=== PATIENT | female | born 1935 | race Caucasian/White ===

== ENCOUNTER 2024-09-06 21:59 | Inpatient (IN) | payer MEDICARE, SELFPAY ==
[2024-09-06 22:01] VITALS: BP 147/76; PULSE 76; RESP 27; TEMP 37.3; O2SAT 86; BMI 16.1
[2024-09-06 22:06] VITALS: BP 147/76; PULSE 78; RESP 24; TEMP 37.3; O2SAT 92
--- NOTE | 2024-09-06 22:13 | CT_ITS ---
INDICATION: fall EXAMINATION: CT BRAIN - CT Head or Brain W/O Contrast Injection TECHNIQUE: Multiple axial images were obtained of the head without intravenous contrast. The protocol utilizes one or more of the following dose reduction techniques: automated exposure control, adjustment of mA and/or kV according to patient size,and/or use of iterative reconstruction technique. IV Contrast dosage and agent: None. RADIATION DOSAGE (If Supplied By Facility): CTDIvol = ( 44.99 ) mGy, DLP = ( 829.85 ) mGycm COMPARISON: No relevant prior comparison study available FINDINGS: BRAIN PARENCHYMA: No intra- or extra-axial hemorrhage. No evidence of acute infarct. No intracranial mass or mass effect. Chronic microvascular ischemic changes are noted in the periventricular white matter. 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 Old infarction in the right occipital lobe, right OPERATIONS TECHNICIAN territory. Posterior fossa structures are unremarkable. CSF SPACES: Appropriate for age. No hydrocephalus. Basal cisterns are patent. CALVARIUM, SKULL BASE, PARANASAL SINUSES AND MASTOID AIR CELLS: Clear. No discrete lytic or blastic abnormalities. ORBITS: Both globes, extraocular muscles, optic nerves and retrobulbar fat appear unremarkable. ASPECTS Score for Acute Strokes: 10 CT/Brain/Head without Contrast IMPRESSION: No acute intracranial abnormality. Electronically Signed: Odette Langford MD at 23:23 EST ,
--- NOTE | 2024-09-06 22:13 | EKG12_ITS ---
Test Reason : Blood Pressure : */* mmHG Vent. Rate : 72 BPM Atrial Rate : 72 BPM P-R Int : 134 ms QRS Dur : 128 ms QT Int : 436 ms P-R-T Axes : 83 112 46 degrees QTcB Int : 477 ms Normal sinus rhythm Right bundle branch block Left posterior fascicular block Bifascicular block Abnormal ECG Confirmed by ATIF SAMUEL, REINA ([id number]), news videotape editor KEEGAN AVILA ([id number]) on 09/08/2024 10:56:50 AM Referred By: Confirmed By: REINA SRIVASTAVA MD
--- NOTE | 2024-09-06 22:15 | EX.ED.DYSGE1 ---
HPI History of Present Illness Chief Complaint: Shortness of Breath Informant: patient and family Narrative Narrative: Brought in by EMS from home increasing dyspnea cough. Symptoms started 2 days ago. Family tested for COVID yesterday was positive. Patient has not seen a doctor in 20 years. Daily tobacco use. No diagnosed COPD. No home oxygen. Patient denies any myalgias or pain however family reports she reported pain everywhere. She had a fall 2 days ago no injuries. She has been ambulatory today. Denies fevers or headache. Family reports no confusion. No history of COVID in the past no vaccinations. No nausea vomiting Prior similar symptoms: No PFSH PFSH Medical History (Updated 09/07/24 @ 01:27 by Latoya Li) Heel fracture Allergy/AdvReac Type Severity Reaction Status Date / Time Penicillins Allergy Intermediate Rash Verified 09/06/24 22:11 Family History (Updated 09/06/24 @ 23:[address] Joaquin Ribera MD) Other Heart disease Surgical History H/O: hysterectomy Social History Smoking Status: Current every day smoker tobacco type: cigarettes ROS ROS ED Constitutional Constitutional ED: Denies chills, fever(s) or sweats Eyes Eyes: Denies change in vision ENT ENT ED: Denies dysphagia or sore throat Cardiovascular Cardiovascular: Denies chest pain, leg edema, palpitations or racing heartbeat Respiratory/Chest Respiratory/Chest: Reports cough; Denies dyspnea or dyspnea on exertion Gastrointestinal Gastrointestinal: Denies abdominal pain, diarrhea, nausea or vomiting Genitourinary Genitourinary ED: Denies dysuria, hematuria or urinary frequency Musculoskeletal Musculoskeletal: Reports myalgias; Denies back pain, extremity pain or neck pain Integumentary Denies rash or wounds Neurologic Neurologic: Denies headache(s), paresthesias or weakness EXAM Physical Exam Const Vital Signs: 09/06/24 22:01 09/06/24 22:06 09/06/24 22:08 Temperature 99.1 F 99.1 F Temperature Source Axillary Axillary Pulse Rate 76 78 Respiratory Rate 27 H 24 H Respiratory Effort Short of Breath Blood Pressure 147/76 H 147/76 H Blood Pressure Mean 99 99 Pulse Ox 86 92 Oxygen Delivery Method Room Air Nasal Cannula Oxygen Flow Rate (L/min) 3 09/06/24 22:13 09/06/24 23:00 09/06/24 23:07 Temperature 99 F Temperature Source Axillary Pulse Rate 72 72 Respiratory Rate 24 H 24 H Respiratory Effort Blood Pressure 157/98 H 157/95 H Blood Pressure Mean 117 115 Pulse Ox 94 94 Oxygen Delivery Method Nasal Cannula Nasal Cannula Nasal Cannula Oxygen Flow Rate (L/min) 3 3 3 Positive cachectic General Appearance ED: cachectic and NAD Nutritional Appearance: cachectic HEENT Reports dry mucous membranes normocephalic and atraumatic Mouth ED: Yes dry mucous membranes Mouth: dry mucous membranes Neck no lymphadenopathy and supple General: Negative for tenderness Chest Wall Chest: Negative for tenderness Resp normal respiratory effort and normal air movement Effort and Inspection: symmetric chest movement; Negative for respiratory distress Cardio regular rate, regular rhythm and no murmurs Peripheral Pulses: pulses 2+ throughout GI normal to inspection, nondistended, normoactive bowel sounds and non-tender Palpation: Negative for guarding or rebound tenderness present Extremity normal to inspection Extremity Narrative: Negative logroll of the lower extremities. General Extremety ED: Negative for edema or tenderness General Extremity: Negative for edema Neuro no sensory deficits noted Neuro Narrative: Alert to person and place, but not time of the year, however family reports baseline. Sensorium / Orientation: awake and alert Skin no rashes or lesions noted and no wounds MDM MDM MDM Narrative Medical decision making narrative: Interventions / MDM: Differential diagnosis: COVID-19 infection, COVID-pneumonia, hypoxia Diagnosis considered but do not suspect: Intracranial hemorrhage however CT negative. My EKG interpretation: Sinus rate of 72, no ST changes, right bundle branch block. T wave version in V1 V2. No old for comparison. Imaging independently reviewed and interpreted by myself: CT brain: No acute process. 1 view chest x-ray: Left lower lobe infiltrates also read by radiology. External documents reviewed: N/A Test considered but not ordered:N/A ED course: Present hypoxia 86% room air. Afebrile she is on 3 L nasal cannula no respiratory distress. Positive COVID test yesterday. Dry mucosal membranes. IV established for labs, EKG chest x-ray. Will obtain CT head due to fall. Will start dexamethasone with her hypoxia. 2330: CT brain negative. Chest x-ray per radiology concern for left lower lobe infiltrate. She is positive for COVID. This is COVID-pneumonia with hypoxia. No indication for antibiotics. Stable on 3 L oxygen. Laboratory studies white count 7 hemoglobin 13.9 platelets 238. Sodium 140. Creatinine 0.46. Glucose 122. I discussed with hospitalist for admission. Re-evaluation: stable Disposition discussed with patient/family/significant other: Patient and family Case discussed with consulting clinician: Hospitalist This note was generated with [employer] dictation software. It may contain incorrect words, spelling, and punctuation that were not noted in checking the note before signing. Lab Data Attestation: I reviewed the patient's lab results. Labs: Laboratory Results - last 24 hr 09/06/24 09/06/24 22:22 22:22 WBC 7.0 RBC 4.63 Hgb 13.9 Hct 41.6 MCV 89.8 MCH 30.0 MCHC 33.4 RDW Std Deviation 45.8 H RDW Coeff of Sharon 14.0 Plt Count 238 MPV 11.6 Immature Gran % (Auto) 1.600 H Neut % (Auto) 77.3 H Lymph % (Auto) 12.1 L [place] % (Auto) 8.4 Eos % (Auto) 0.0 Baso % (Auto) 0.6 Absolute Neuts (auto) 5.5 Absolute Lymphs (auto) 0.85 Nucleated RBC % 0 PT 14.1 INR 1.1 APTT 31.2 Sodium 140 Potassium 3.5 Chloride 105 Carbon Dioxide 28.0 Anion Gap 7 BUN 19 H Creatinine 0.46 L Estim Creat Clear Calc 30.10 Est GFR (MDRD) Af Amer 164 Est GFR (MDRD) Non-Af 136 BUN/Creatinine Ratio 41.3 H Glucose 122 H Calcium 9.0 Total Bilirubin 0.50 AST 35 ALT 33 Alkaline Phosphatase 65 63 Total Protein 7.4 Albumin 2.9 L Globulin 4.5 H Albumin/Globulin Ratio 0.6 L TSH 0.929 Radiography Diagnostic Testing: Clinical Impression(s) from Imaging Studies Brain CT 09/06/24 22:13 IMPRESSION: No acute intracranial abnormality. Electronically Signed: Odette Langford MD at 23:23 EST , Chest X-Ray 09/06/24 22:53 IMPRESSION: Chronic interstitial lung disease. Left lower lobe pneumonia. Electronically Signed: Odette Langford MD at 23:42 EST , Discharge Plan Dx/Rx/DC Orders Clinical Impression: Pneumonia due to 2019-nCoV, Hypoxia, Tobacco dependence, Fall Disposition Disposition: Acute Care Hospital [facility] Discharge Date/Time: 09/07/24 00:05
[2024-09-06 22:36] LABS: Absolute Lymphocyte Count 0.85 X10^3/uL (0.83-4.51); Absolute Neutrophil Count 5.5 X10^3/uL (2.0-7.7); Basophil# 0.04 X10^3/uL; Basophil% 0.6 % (0-1); Hematocrit 41.6 % (37-47); Hemoglobin 13.9 g/dL (12.0-15.0); Lymphocyte # 0.85 X10^3/ul (0.83-4.51); Lymphocyte % 12.1 % (19-41); Mean Corp Hgb Conc 33.4 g/dL (32-36); Mean Corpuscular Volume 89.8 fL (81-99); Mean Platelet Vol. 11.6 fl (6.2-12.0); Monocyte# 0.59 X10^3/uL; Monocyte% 8.4 % (0-10); NRBC Flagged by Analyzer 0 % (0-5); Neutrophil # 5.45 X10^3/uL (2.7-7.7); Neutrophil % 77.3 % (47-70); Platelet Count 238 K/mm3 (150-450); RBC Distribution Width SD 45.8 fl (35.1-43.9); Red Blood Count 4.63 M/mm3 (4.2-5.4)
[2024-09-06] MEDS: 0.9% Normal Saline (1000mL) 1,000 ML 1000 ML IV (22:40)
[2024-09-06] MEDS: dexAMETHasone 10 MG/ML Vial 6 MG IV (22:40)
[2024-09-06 22:52] LABS: International Normalized Ratio 1.1; Prothrombin Time (Protime)PT. 14.1 SECONDS (11.7-14.9)
[2024-09-06 22:53] LABS: Partial Thromboplast Time 31.2 Seconds (24.1-36.2)
--- NOTE | 2024-09-06 22:53 | RAD_ITS ---
INDICATION: cough EXAMINATION/TECHNIQUE: X-RAY - XR Chest 1 View COMPARISON: No relevant prior comparison study available FINDINGS: LINES/DEVICES: None. LUNGS: Increased interstitial markings in both lungs suggesting chronic interstitial lung disease. Ill-defined airspace disease in the left lower lobe suggesting pneumonia. MEDIASTINUM AND CARDIOVASCULAR STRUCTURES: Cardiac silhouette not enlarged. Central airways and mediastinal contour are unremarkable. BONES AND SOFT TISSUES: Unremarkable. RAD/Chest 1 View (Portable) IMPRESSION: Chronic interstitial lung disease. Left lower lobe pneumonia. Electronically Signed: Odette Langford MD at 23:42 EST ,
[2024-09-06 22:57] LABS: ALB/GLOB Ratio 0.6 RATIO (0.9-2.4); AST(SGOT) 35 U/L (15-37); Alanine Aminotransfer ALT/SGPT 33 U/L (13-56); Albumin, Serum 2.9 g/dL (3.2-5.0); Alkaline Phosphatase 65 U/L (45-117); Anion Gap 7 (5-15); BUN 19 mg/dL (7-18); BUN/Creat Ratio 41.3 RATIO (10-20); Chloride 105 mmol/L (98-107); Creatinine, Serum 0.46 mg/dL (0.55-1.02); EST Glomerular Filtration Rate 136 mL/min (>60); Est Glom Filt Rate - Afr Amer 164 mL/min (>60); Globulin 4.5 g/dL (2.2-4.2); Glucose 122 mg/dL (74-106); Potassium 3.5 mmol/L (3.5-5.1); Protein, Total 7.4 g/dL (6.4-8.2); Sodium Level 140 mmol/L (136-145)
[2024-09-06 23:00] VITALS: BP 157/98; PULSE 72; RESP 24; O2SAT 94
[2024-09-06 23:07] VITALS: BP 157/95; PULSE 72; RESP 24; TEMP 37.2; O2SAT 94
--- NOTE | 2024-09-06 23:31 | HP.PCM.HOS_ITS ---
HPI - General General Date of Admission: 09/06/24 HPI Narrative BETTY JACKSON, is a 89 F who presents to the hospital with increasing weakness and shortness of breath. She has never been to a doctor so she has no idea what her past medical history is, she is a daily smoker. Starting around Thursday or Thursday she started noticing that she was little bit more short of breath and weak family was able to convince her to come to the hospital today where she tested positive for COVID. She does not have a leukocytosis and there does not appear to be consolidation on chest x-ray, she does have signs of emphysema on chest x-ray per my read and she is extremely underweight consistent with a pulmonary cachexia. [facility] Medical History (Updated 09/07/24 @ 01:27 by Latoya Li) Heel fracture Allergy/AdvReac Type Severity Reaction Status Date / Time Penicillins Allergy Intermediate Rash Verified 09/06/24 22:11 Family History (Updated 09/06/24 @ 23:[address] Joaquin Ribera MD) Other Heart disease Surgical History H/O: hysterectomy Social History Smoking Status: Current every day smoker tobacco type: cigarettes ROS Constitutional Constitutional: Reports weakness; Denies chills, fatigue, fever(s) or malaise Eyes Eyes: Denies blurry vision ENT HEENT: Denies headache(s) or nasal discharge Cardiovascular Cardiovascular: Denies chest pain, dyspnea on exertion or syncope Respiratory/Chest Respiratory/Chest: Reports shortness of breath at rest; Denies cough or shortness of breath with exertion Gastrointestinal Gastrointestinal: Denies constipation, diarrhea, nausea or vomiting Genitourinary Genitourinary: Denies dysuria Neurologic Neurologic: Denies focal weakness, numbness or tremor(s) Psychiatric Psychiatric: Denies anxiety or depression Vital Signs Vital Signs Vital Signs: 09/06/24 22:01 09/06/24 22:06 09/06/24 22:08 Temperature 99.1 F 99.1 F Temperature Source Axillary Axillary Pulse Rate 76 78 Respiratory Rate 27 H 24 H Respiratory Effort Short of Breath Blood Pressure 147/76 H 147/76 H Blood Pressure Mean 99 99 Pulse Ox 86 92 Oxygen Delivery Method Room Air Nasal Cannula Oxygen Flow Rate (L/min) 3 09/06/24 22:13 09/06/24 23:00 09/06/24 23:07 Temperature 99 F Temperature Source Axillary Pulse Rate 72 72 Respiratory Rate 24 H 24 H Respiratory Effort Blood Pressure 157/98 H 157/95 H Blood Pressure Mean 117 115 Pulse Ox 94 94 Oxygen Delivery Method Nasal Cannula Nasal Cannula Nasal Cannula Oxygen Flow Rate (L/min) 3 3 3 Weight Weight: 88 lb 2.958 oz Body Mass Index (BMI) 16.1 Physical Exam Narrative General: Alert, Oriented x3, Cooperative, No apparent distress, nicotine standing in her fingernails and hair, cachectic HEENT: Atraumatic, PERRLA, EOMI, Normocephalic Oral: Moist Mucosa Neck: Supple, No JVD Lungs: Diminished, Normal air movement, No rhonchi, scattered wheeze, No rales Cardiovascular: Regular rate, Regular Rhythm, Normal S1, Normal S2, No murmurs Abdomen: Soft, Non Tender, Non-Distended, No Hepato-splenomegaly Extremities: No edema, Capillary Refill Less than 3 Seconds Skin: No rashes, No breakdown Musculoskeletal: No Tenderness to Palpation of Joints or Extremities Neurological: No focal neurological deficits, moves all extremities, Sensory exam intact to light touch and pain Psych/Mental Status: Normal Affect, Appropriate Results Lab / Micro Data 09/06/24 22:22 09/06/24 22:22 Labs: Laboratory Results - last 24 hr 09/06/24 22:22: WBC 7.0, RBC 4.63, Hgb 13.9, Hct 41.6, MCV 89.8, MCH 30.0, MCHC 33.4, RDW Std Deviation 45.8 H, RDW Coeff of Sharon 14.0, Plt Count 238, MPV 11.6, Immature Gran % (Auto) 1.600 H, Neut % (Auto) 77.3 H, Lymph % (Auto) 12.1 L, [place] % (Auto) 8.4, Eos % (Auto) 0.0, Baso % (Auto) 0.6, Absolute Neuts (auto) 5.5, Absolute Lymphs (auto) 0.85, Nucleated RBC % 0, PT 14.1, INR 1.1, APTT 31.2, Sodium 140, Potassium 3.5, Chloride 105, Carbon Dioxide 28.0, Anion Gap 7, BUN 19 H, Creatinine 0.46 L, Estim Creat Clear Calc 30.10, Est GFR (MDRD) Af Amer 164, Est GFR (MDRD) Non-Af 136, BUN/Creatinine Ratio 41.3 H, Glucose 122 H, Calcium 9.0, Total Bilirubin 0.50, AST 35, ALT 33, Alkaline Phosphatase 65, Total Protein 7.4, Albumin 2.9 L, Globulin 4.5 H, Albumin/Globulin Ratio 0.6 L Micro: Microbiology 09/06/24 22:27 Mucosa - Nose SARS-CoV-2, Influenza & RSV (PCR) - Final Imaging Radiology Impression Brain CT 09/06/24 22:13 IMPRESSION: No acute intracranial abnormality. Electronically Signed: Odette Langford MD at 23:23 EST Reading Location ID and State: [facility] / [place] Tel , Service support , Assessment & Plan Assessment/Plan (1) COVID: PLAN: Plan 1. Acute hypoxic insufficiency secondary to COVID/tobacco abuse ? She is unvaccinated ? Continue with Decadron and remdesivir ? Continue with DuoNebs ? Will continue with the nicotine patch ? Chest x-ray result left lower lobe infiltrate however she is afebrile without a leukocytosis at this time will monitor but if she does not improve may need to add antibiotics 2. She does not follow with a physician at all, given her age will obtain a TSH. Also her blood pressure is little bit elevated if it remains elevated as her breathing improves may need to be started on a blood pressure medication. DVT: SCDs 75 minutes was spent on direct patient care, including documentation as well as chart review and collaboration with colleagues Charges/Coding Visit Charges Inpatient E&M: 41902 Init Hosp L3
[2024-09-06 23:39] VITALS: BP 163/72; PULSE 67; RESP 22; TEMP 37.2; O2SAT 94
[2024-09-07] VITALS (13 sets, daily range): BP systolic 92–157; BP diastolic 70–87; PULSE 67–77; RESP 16–20; TEMP 36.2–36.6; O2SAT 88–97; BMI 15.7
[2024-09-07 01:06] LABS: Thyroid Stim Hormone (TSH) 0.929 uIU/mL (0.358-3.740)
[2024-09-07 03:37] LABS: Alkaline Phosphatase 63 U/L (45-117)
[2024-09-07] MEDS: Remdesivir 200 MG in 0.9% Normal Saline (250mL Bag) 210 ML 250 MG IV (04:16)
[2024-09-07] MEDS: Acetaminophen 500 MG Tablet PO (06:18)
[2024-09-07 07:31] LABS: Absolute Lymphocyte Count 0.38 X10^3/uL (0.83-4.51); Absolute Neutrophil Count 4.4 X10^3/uL (2.0-7.7); Basophil# 0.03 X10^3/uL; Basophil% 0.6 % (0-1); Hematocrit 38.9 % (37-47); Hemoglobin 12.7 g/dL (12.0-15.0); Lymphocyte # 0.38 X10^3/ul (0.83-4.51); Lymphocyte % 7.6 % (19-41); Mean Corp Hgb Conc 32.6 g/dL (32-36); Mean Corpuscular Hgb 29.5 pg (27.0-32.0); Mean Corpuscular Volume 90.3 fL (81-99); Mean Platelet Vol. 11.8 fl (6.2-12.0); Monocyte# 0.12 X10^3/uL; Monocyte% 2.4 % (0-10); NRBC Flagged by Analyzer 0 % (0-5); Neutrophil # 4.38 X10^3/uL (2.7-7.7); Neutrophil % 87.8 % (47-70); POSITIVE DIFFERENTIAL YES; Platelet Count 231 K/mm3 (150-450); RBC Distribution Width CV 14.2 % (11.6-14.6); RBC Distribution Width SD 47.3 fl (35.1-43.9); Red Blood Count 4.31 M/mm3 (4.2-5.4)
[2024-09-07 07:52] LABS: Anion Gap 8 (5-15); BUN 21 mg/dL (7-18); BUN/Creat Ratio 45.5 RATIO (10-20); Calcium,Total 8.1 mg/dL (8.5-10.1); Chloride 108 mmol/L (98-107); Creatinine, Serum 0.46 mg/dL (0.55-1.02); EST Glomerular Filtration Rate 135 mL/min (>60); Est Glom Filt Rate - Afr Amer 164 mL/min (>60); Estimated Creatinine Clearance 29.28 ml/min; Glucose 222 mg/dL (74-106); Potassium 3.1 mmol/L (3.5-5.1); Sodium Level 140 mmol/L (136-145)
[2024-09-07 08:07] LABS: AST(SGOT) 35 U/L (15-37); Alanine Aminotransfer ALT/SGPT 27 U/L (13-56)
[2024-09-07] MEDS: dexAMETHasone 4 MG Tablet 6 MG PO (10:11)
[2024-09-07] MEDS: Potassium Chloride Oral Tablet 20 MEQ 40 MEQ PO (10:12)
[2024-09-07] MEDS: Azithromycin 500 MG in Dextrose 5%-Water (250mL Bag) 250 ML 250 MG IV (10:14)
[2024-09-07] MEDS: 0.9% Normal Saline (1000mL) 1,000 ML 125 ML IV ×2 (10:14→20:25)
[2024-09-07] MEDS: 0.9% Saline Lock 10 ML Syringe IV (10:22)
[2024-09-07] MEDS: Ipratropium/Albuterol Sulfate 3 ML AMPUL.NEB INHALATION ×4 (10:35→20:31)
[2024-09-07] MEDS: Ceftriaxone 1 GM/50 ML BAG IV (11:33)
--- NOTE | 2024-09-07 11:47 | CASEMGMT ---
RICHY WADDELL Assessment: Face to Face with pt for initial transition planning/care coordination assessment. RICHY WADDELL introduced self and role at [facility], pt voices understanding and consents to assessment. Pt is oriented and answered several questions, but tired and wanting to rest. Pt asked RICHY WADDELL to call daughterBarbara to discuss DC planning. RICHY WADDELL called and spoke with Barbara over the phone. Care providers, pharmacy, and demographics verified/updated. Strata: 1 Admitting Dx: COVID PCP: None, RICHY WADDELL provided pt with list of local PCP. Specialists: Denies Preferred Pharmacy: [facility] [place] Insurance: [employer] [facility] Prescription Benefit: yes LNOK: Daughter, Barbara; Daughter, Nidhi. Living Arrangements: Pt lives with daughterBarbara; in a 1 story trailer with 4 steps to enter. ADLs: Pt requiring assistance with ADLs and IADLs. Transportation: Pt does not go out much. DME: [facility]. Pt does not use O2 at home, RICHY WADDELL provided verbal list of local DME providers, if O2 required at time of DC daughter chose [facility]. HHC/SNF: Denies Hx of. Pt daughter would like SNF at time of DC if recommended by therapy, denies wanting list. Would like for Pt to go to [facility]. Daughter states no further concerns/needs. RICHY WADDELL notified SW of family wishes. SW or CM to follow. Advised pt to ask CM if any further question/concerns/needs arise, voices understanding. Pt Goal: TBD Plan: TBD, follow therapy recommendations. Inna LOCKHART CM
--- NOTE | 2024-09-07 12:37 | PCM.PROGNOTE ---
Subjective Subjective Patient seen and examined. She had no active complaints. She was quite frail. She was on 4 L of oxygen by nasal cannula. She denies any fever or chills, coughing, chest pain, palpitations, dizziness, nausea vomiting or any other symptoms. Review of systems otherwise negative. Objective Data Objective Data Vital Signs: Vital Signs Temp Pulse Resp BP Pulse Ox O2 Del Method O2 Flow Rate 97.4 F L 68 16 134/71 H 94 Nasal Cannula 4 09/07/24 10:00 09/07/24 10:35 09/07/24 10:35 09/07/24 10:00 09/07/24 10:35 09/07/24 10:35 09/07/24 10:35 Oxygen Flow Rate (L/min) 4 Oxygen Delivery Method Nasal Cannula Weight: 85 lb 12.157 oz Body Mass Index (BMI) 15.7 Intake & Output: Intake and Output for Last 24 Hours 09/05/24 09/06/24 09/07/24 23:59 23:59 23:59 Intake Total 1555 / 1555 Balance 1555 / 1555 Lab / Micro Data 09/07/24 06:42 09/07/24 06:42 Labs: Laboratory Results - last 24 hr 09/06/24 22:22: WBC 7.0, RBC 4.63, Hgb 13.9, Hct 41.6, MCV 89.8, MCH 30.0, MCHC 33.4, RDW Std Deviation 45.8 H, RDW Coeff of Sharon 14.0, Plt Count 238, MPV 11.6, Immature Gran % (Auto) 1.600 H, Neut % (Auto) 77.3 H, Lymph % (Auto) 12.1 L, [place] % (Auto) 8.4, Eos % (Auto) 0.0, Baso % (Auto) 0.6, Absolute Neuts (auto) 5.5, Absolute Lymphs (auto) 0.85, Nucleated RBC % 0, PT 14.1, INR 1.1, APTT 31.2, Sodium 140, Potassium 3.5, Chloride 105, Carbon Dioxide 28.0, Anion Gap 7, BUN 19 H, Creatinine 0.46 L, Estim Creat Clear Calc 30.10, Est GFR (MDRD) Af Amer 164, Est GFR (MDRD) Non-Af 136, BUN/Creatinine Ratio 41.3 H, Glucose 122 H, Calcium 9.0, Total Bilirubin 0.50, AST 35, ALT 33, Alkaline Phosphatase 65 09/06/24 22:22: Alkaline Phosphatase 63, Total Protein 7.4, Albumin 2.9 L, Globulin 4.5 H, Albumin/Globulin Ratio 0.6 L, TSH 0.929 09/07/24 06:42: WBC 5.0, RBC 4.31, Hgb 12.7, Hct 38.9, MCV 90.3, MCH 29.5, MCHC 32.6, RDW Std Deviation 47.3 H, RDW Coeff of [place] 14.2, Plt Count 231, MPV 11.8, Immature Gran % (Auto) 1.600 H, Neut % (Auto) 87.8 H, Lymph % (Auto) 7.6 L, [place] % (Auto) 2.4, Eos % (Auto) 0.0, Baso % (Auto) 0.6, Absolute Neuts (auto) 4.4, Absolute Lymphs (auto) 0.38 L, Nucleated RBC % 0, Sodium 140, Potassium 3.1 L, Chloride 108 H, Carbon Dioxide 24.0, Anion Gap 8, BUN 21 H, Creatinine 0.46 L, Estim Creat Clear Calc 29.28, Est GFR (MDRD) Af Amer 164, Est GFR (MDRD) Non-Af 135, BUN/Creatinine Ratio 45.5 H, Glucose 222 H, Calcium 8.1 L, AST 35, ALT 27 Micro: Microbiology 09/06/24 22:27 Mucosa - Nose SARS-CoV-2, Influenza & RSV (PCR) - Final Radiography Diagnostic Testing: Radiology Impression Brain CT 09/06/24 22:13 IMPRESSION: No acute intracranial abnormality. Electronically Signed: Odette Langford MD at 23:23 EST , Chest X-Ray 09/06/24 22:53 IMPRESSION: Chronic interstitial lung disease. Left lower lobe pneumonia. Electronically Signed: Odette Langford MD at 23:42 EST , Physical Exam Const alert Constitutional Narrative: very frail General Appearance: cooperative Orientation / Consciousness: lethargic HEENT normocephalic and head/scalp atraumatic Mouth: dry mucous membranes Eyes PERRL and EOMs intact bilaterally Neck no lymphadenopathy and supple Lymph Lymphatic: no lymphadenopathy noted and no lymphedema noted Resp Resp Narrative: mildly diminished breath sounds bibasally, no wheezes or crackles. On 4L of oxygen by nasal canula Cardio regular rate, regular rhythm, S1 normal heart sound, S2 normal heart sound and no murmurs GI normal to inspection, nondistended, normoactive bowel sounds, soft to palpation, non-tender and non-distended Extremity normal capillary refill, no clubbing, cyanosis or edema and no calf tenderness General Extremity: no tenderness to palpation of joints or extremities Skin General Skin Exam: no breakdown Neuro CN's II-XII intact bilaterally, no focal motor deficits and no sensory deficits noted Motor Exam: general weakness Psych thought process normal Psych Narrative: very weak and frail Mood & Affect: flat affect Assessment & Plan Assessment/Plan (1) COVID: (2) Pneumonia due to 2019-nCoV: (3) Hypoxia: PLAN: Plan #Hypoxia due to covid pneumonia patient currently on 4L of oxygen by nasal canula does not wear oxygen at home tested positive for covid, and CXR showed left lower lobe infiltrate on decadron. Start on IV ceftriaxone and azithromycin for superimposed pneumonia Breathing treatments bronchodilators. Titrate oxygen to maintain saturation above 90%. Check urine for strep and Legionella Also on remdesivir Continue gentle hydration with IV fluids. #Hypokalemia: Potassium is 3.1. Replace and trend. #Severe protein calorie malnutrition Patient is very cachectic with BMI of 4015.7. Consult nutrition #Nicotine dependence: Nicotine patch 14 mg daily DVT prophylaxis: Start Lovenox Charges/Coding Visit Charges Inpatient E&M: 97820 [facility] Hosp L3
[2024-09-08 03:53] VITALS: BP 98/70; PULSE 65; RESP 18; TEMP 36.6; O2SAT 96
[2024-09-08] MEDS: Enoxaparin 30 MG/0.3 ML Syringe SC (06:01)
[2024-09-08 07:24] VITALS: PULSE 78; RESP 24; O2SAT 96
[2024-09-08 07:24] LABS: Absolute Neutrophil Count 10.3 X10^3/uL (2.0-7.7); Basophil% 0.8 % (0-1); Hematocrit 36.5 % (37-47); Hemoglobin 12.3 g/dL (12.0-15.0); Mean Corp Hgb Conc 33.7 g/dL (32-36); Mean Corpuscular Hgb 30.1 pg (27.0-32.0); Mean Corpuscular Volume 89.5 fL (81-99); Mean Platelet Vol. 11.4 fl (6.2-12.0); Monocyte# 0.59 X10^3/uL; Monocyte% 4.9 % (0-10); NRBC Flagged by Analyzer 0 % (0-5); Neutrophil # 10.32 X10^3/uL (2.7-7.7); Neutrophil % 86.1 % (47-70); POSITIVE DIFFERENTIAL YES; Platelet Count 244 K/mm3 (150-450); RBC Distribution Width CV 14.2 % (11.6-14.6); RBC Distribution Width SD 46.3 fl (35.1-43.9); Red Blood Count 4.08 M/mm3 (4.2-5.4)
[2024-09-08] MEDS: Ipratropium/Albuterol Sulfate 3 ML AMPUL.NEB INHALATION ×2 (07:24→19:40)
[2024-09-08 07:54] LABS: Anion Gap 4 (5-15); BUN 18 mg/dL (7-18); BUN/Creat Ratio 44.9 RATIO (10-20); Calcium,Total 7.8 mg/dL (8.5-10.1); Chloride 112 mmol/L (98-107); EST Glomerular Filtration Rate 159 mL/min (>60); Est Glom Filt Rate - Afr Amer 193 mL/min (>60); Estimated Creatinine Clearance 29.28 ml/min; Glucose 146 mg/dL (74-106); Potassium 3.7 mmol/L (3.5-5.1); Sodium Level 141 mmol/L (136-145)
--- NOTE | 2024-09-08 08:08 | CASEMGMT ---
Social Work Per RNCM, pt family requesting placement at [facility]. Therapy notes reviewed, pt is appropriate for SNF. DC assistant dean updated and to send referral. LOU Luna
--- NOTE | 2024-09-08 09:08 | CASEMGMT ---
Addendum entered by Jazmin Jenkins 09/08/24 10:37: [facility] willing to accept but pt could not admit until 09/12 d/t Covid+ status. She would also need to remain on nicotine patch d/t [facility] being a non-smoking [facility]. SW updated. Jazmin Jenkins DC Planning Asst. Original Note: Discharge Planning Referral sent via [facility] to [facility]. Jazmin Jenkins DC Planning Asst.
--- NOTE | 2024-09-08 10:45 | CASEMGMT ---
Discharge Planning A list of?SNF providers including quality and resource use data and consistent with the patient's preferred geographic region, medical needs, and insurance network was created in [facility]Port Guide.? This list was provided to the SW. Jazmin Jenkins Discharge Planning Asst.
[2024-09-08 10:52] VITALS: BP 133/54; PULSE 69; RESP 18; TEMP 36.1; O2SAT 93
[2024-09-08] MEDS: dexAMETHasone 4 MG Tablet 6 MG PO (10:54)
[2024-09-08] MEDS: Ceftriaxone 1 GM/50 ML BAG IV (10:55)
--- NOTE | 2024-09-08 11:20 | CASEMGMT ---
Addendum entered by Nathalie Marte 09/08/24 15:07: Social Work Eloisa from [facility] reports pt case will need to be reviewed again tomorrow after therapy as pt showed some resistance today during PT/OT. LOU Luna Addendum entered by Nathalie Marte 09/08/24 14:22: Social Work SW called pt's dgt Barbara to discuss discharge plan. LAURA updated Barbara that [facility] unable to accept. Barbara then asking if pt can go to TCU. Referral sent to TCU. SW will await determination of acceptance. Plan: TCU, pending acceptance and precert LOU Luna Original Note: Social Work VM left with pt julio Jimenez to discuss discharge plan. LAURA will await return call. LOU Luna
[2024-09-08] MEDS: Azithromycin 500 MG in Dextrose 5%-Water (250mL Bag) 250 ML 250 MG IV (11:53)
--- NOTE | 2024-09-08 15:03 | PN_ITS ---
Subjective Subjective Patient seen and examined. She had no active complaints. She was lying curled up in her chair. Review of systems otherwise negative. Objective Data Objective Data Vital Signs: Vital Signs Temp Pulse Resp BP Pulse Ox O2 Del Method O2 Flow Rate 96.9 F L 69 18 133/54 H 93 Nasal Cannula 2 09/08/24 10:52 09/08/24 10:52 09/08/24 10:52 09/08/24 10:52 09/08/24 10:52 09/08/24 10:52 09/08/24 10:52 FiO2 95 09/07/24 21:19 Oxygen Flow Rate (L/min) 2 Oxygen Delivery Method Nasal Cannula Weight: 85 lb 12.157 oz Body Mass Index (BMI) 15.7 Intake & Output: Intake and Output for Last 24 Hours 09/06/24 09/07/24 09/08/24 23:59 23:59 23:59 Intake Total 2555 / 2555 1405 / 1405 Balance 2555 / 2555 1405 / 1405 Lab / Micro Data 09/08/24 07:02 09/08/24 07:02 Labs: Laboratory Results - last 24 hr 09/08/24 07:02: WBC 12.0 H, RBC 4.08 L, Hgb 12.3, Hct 36.5 L, MCV 89.5, MCH 30.1, MCHC 33.7, RDW Std Deviation 46.3 H, RDW Coeff of Sharon 14.2, Plt Count 244, MPV 11.4, Immature Gran % (Auto) 3.200 H, Neut % (Auto) 86.1 H, Lymph % (Auto) 5.0 L, [place] % (Auto) 4.9, Eos % (Auto) 0.0, Baso % (Auto) 0.8, Absolute Neuts (auto) 10.3 H, Absolute Lymphs (auto) 0.60 L, Nucleated RBC % 0, Sodium 141, Potassium 3.7, Chloride 112 H, Carbon Dioxide 25.0, Anion Gap 4 L, BUN 18, C reatinine 0.40 L, Estim Creat Clear Calc 29.28, Est GFR (MDRD) Af Amer 193, Est GFR (MDRD) Non-Af 159, BUN/Creatinine Ratio 44.9 H, Glucose 146 H, Calcium 7.8 L Micro: Microbiology 09/06/24 22:27 Mucosa - Nose SARS-CoV-2, Influenza & RSV (PCR) - Final SARS-CoV-2 (COVID 19 PCR) Physical Exam Const alert and oriented x3 Constitutional Narrative: very frail General Appearance: cooperative HEENT normocephalic and head/scalp atraumatic Eyes PERRL and EOMs intact bilaterally Neck no lymphadenopathy and supple Lymph Lymphatic: no lymphadenopathy noted and no lymphedema noted Resp Resp Narrative: mildly diminished breath sounds bibasally, no wheezes or crackles. On 2L of oxygen by nasal canula Cardio regular rate, regular rhythm, S1 normal heart sound, S2 normal heart sound and no murmurs GI normal to inspection, nondistended, normoactive bowel sounds, soft to palpation, non-tender and non-distended Extremity normal capillary refill, no clubbing, cyanosis or edema and no calf tenderness General Extremity: no tenderness to palpation of joints or extremities Skin General Skin Exam: no breakdown Neuro CN's II-XII intact bilaterally, no focal motor deficits and no sensory deficits noted Motor Exam: general weakness Psych thought process normal Psych Narrative: very weak and frail Mood & Affect: flat affect Assessment & Plan Assessment/Plan (1) COVID: (2) Pneumonia due to 2019-nCoV: (3) Hypoxia: PLAN: Plan #Hypoxia due to covid pneumonia * patient now on 2L of oxygen by nasal canula * does not wear oxygen at home * tested positive for covid, and CXR showed left lower lobe infiltrate * on decadron. On IV ceftriaxone and azithromycin for superimposed pneumonia * Breathing treatments bronchodilators. Titrate oxygen to maintain saturation above 90%. * Check urine for strep and Legionella * Also on remdesivir * Continue gentle hydration with IV fluids. * #Hypokalemia: resolved #Severe protein calorie malnutrition * Patient is very cachectic with BMI of 15.7. Nutrition on board #Nicotine dependence: Nicotine patch 14 mg daily DVT prophylaxis: on lovenox Disposition: Will benefit from placement. Case management on board. Charges/Coding Visit Charges Inpatient E&M: 30845 Subs Hosp L2
[2024-09-08 18:09] VITALS: BP 141/67; PULSE 61; RESP 16; TEMP 36; O2SAT 94
[2024-09-08 19:40] VITALS: PULSE 58; RESP 22; O2SAT 95
[2024-09-08] MEDS: Remdesivir 100 MG in 0.9% Normal Saline (250mL Bag) 230 ML 250 MG IV (21:46)
[2024-09-08] MEDS: 0.9% Saline Lock 10 ML Syringe IV (21:47)
[2024-09-08 23:30] VITALS: BP 142/68; PULSE 66; RESP 16; TEMP 35.9; O2SAT 95
[2024-09-09] VITALS (9 sets, daily range): BP systolic 133–149; BP diastolic 63–78; PULSE 50–69; RESP 16–22; TEMP 36.1–36.6; O2SAT 85–96
[2024-09-09] MEDS: Enoxaparin 30 MG/0.3 ML Syringe SC (05:41)
[2024-09-09] MEDS: Ipratropium/Albuterol Sulfate 3 ML AMPUL.NEB INHALATION ×2 (07:04→19:19)
[2024-09-09 08:23] LABS: Absolute Lymphocyte Count 0.65 X10^3/uL (0.83-4.51); Absolute Neutrophil Count 10.6 X10^3/uL (2.0-7.7); Basophil# 0.11 X10^3/uL; Basophil% 0.9 % (0-1); Hematocrit 37.6 % (37-47); Hemoglobin 12.8 g/dL (12.0-15.0); Lymphocyte # 0.65 X10^3/ul (0.83-4.51); Lymphocyte % 5.3 % (19-41); Mean Corpuscular Hgb 30.1 pg (27.0-32.0); Mean Corpuscular Volume 88.5 fL (81-99); Mean Platelet Vol. 11.7 fl (6.2-12.0); Monocyte# 0.56 X10^3/uL; Monocyte% 4.5 % (0-10); NRBC Flagged by Analyzer 0 % (0-5); Neutrophil # 10.59 X10^3/uL (2.7-7.7); Platelet Count 267 K/mm3 (150-450); RBC Distribution Width CV 14.4 % (11.6-14.6); RBC Distribution Width SD 46.4 fl (35.1-43.9); Red Blood Count 4.25 M/mm3 (4.2-5.4); White Blood Count 12.3 K/mm3 (4.4-11.0)
[2024-09-09 08:54] LABS: Anion Gap 6 (5-15); BUN 17 mg/dL (7-18); BUN/Creat Ratio 47.2 RATIO (10-20); Chloride 110 mmol/L (98-107); Creatinine, Serum 0.36 mg/dL (0.55-1.02); EST Glomerular Filtration Rate 180 mL/min (>60); Est Glom Filt Rate - Afr Amer 218 mL/min (>60); Estimated Creatinine Clearance 29.28 ml/min; Glucose 118 mg/dL (74-106); Potassium 3.7 mmol/L (3.5-5.1); Sodium Level 140 mmol/L (136-145)
[2024-09-09] MEDS: Ceftriaxone 1 GM/50 ML BAG IV (10:26)
[2024-09-09] MEDS: dexAMETHasone 4 MG Tablet 6 MG PO (10:50)
[2024-09-09] MEDS: Azithromycin 500 MG in 0.9% Normal Saline (250mL Bag) 250 ML 250 MG IV (11:29)
--- NOTE | 2024-09-09 12:07 | CASEMGMT ---
[facility] is unable to take patient. LAURA called patient's daughter Barbara and let her know this information. LAURA asked Barbara if she had any other choices. Barbara states she does not as she knows patient wants to come home. LAURA discussed home health with Barbara and explained what insurance covers. Barbara was open to reviewing a list of home health agencies. LAURA also notified RICHY WADDELL and LAURA. Destinee MOURA
--- NOTE | 2024-09-09 12:36 | CASEMGMT ---
LAURA was mistaken in regards to patient having home health. In order to have home health the individual needs to have a primary care doctor and patient does not. [facility] able [facility] patient if she didn't come until the due to Covid. Patient would need a pre-cert in order to go to a assisted which could take until the . LAURA called patient's daughter Barbara back. LAURA explained patient would not be able to have home health due to no primary care doctor. LAURA mentioned trying [facility] again. Barbara said she wants patient to come home. She declined outpatient therapy as well. She asked if patient could get an appt with Dr Diop as that is her PCP. LAURA told her the admin secretary could try and get an appt for patient. LAURA asked Barbara about oxygen providers and she was okay with [facility]. LAURA explained patient will not be able to smoke with the oxygen on or inside the house. O2 would need to be turned off and patient would need to smoke outside. Plan: Home with family. Destinee MOURA
--- NOTE | 2024-09-09 12:56 | PN_ITS ---
Subjective Subjective Patient seen and examined. She had no active complaints. Review of symptoms is otherwise negative. She has remained hemodynamically stable. Objective Data Objective Data Vital Signs: Vital Signs Temp Pulse Resp BP Pulse Ox O2 Del Method O2 Flow Rate 97.6 F L 69 18 134/63 H 93 Nasal Cannula 3 09/09/24 10:22 09/09/24 10:22 09/09/24 10:22 09/09/24 10:22 09/09/24 10:54 09/09/24 11:00 09/09/24 11:00 FiO2 95 09/07/24 21:19 Oxygen Flow Rate (L/min) 3 Oxygen Delivery Method Nasal Cannula Weight: 85 lb 12.157 oz Body Mass Index (BMI) 15.7 Intake & Output: Intake and Output for Last 24 Hours 09/07/24 09/08/24 09/09/24 23:59 23:59 23:59 Intake Total 2555 / 2555 1905 / 1905 850 / 850 Output Total 400 / 400 Balance 2555 / 2555 1505 / 1505 850 / 850 Lab / Micro Data 09/09/24 07:25 09/09/24 07:25 Labs: Laboratory Results - last 24 hr 09/09/24 07:25: WBC 12.3 H, RBC 4.25, Hgb 12.8, Hct 37.6, MCV 88.5, MCH 30.1, MCHC 34.0, RDW Std Deviation 46.4 H, RDW Coeff of Sharon 14.4, Plt Count 267, MPV 11.7, Immature Gran % (Auto) 3.300 H, Neut % (Auto) 86.0 H, Lymph % (Auto) 5.3 L , [place] % (Auto) 4.5, Eos % (Auto) 0.0, Baso % (Auto) 0.9, Absolute Neuts (auto) 10.6 H, Absolute Lymphs (auto) 0.65 L, Nucleated RBC % 0, Sodium 140, Potassium 3.7, Chloride 110 H, Carbon Dioxide 24.0, Anion Gap 6, BUN 17, Creatinine 0.36 L , Estim Creat Clear Calc 29.28, Est GFR (MDRD) Af Amer 218, Est GFR (MDRD) Non- Af 180, BUN/Creatinine Ratio 47.2 H, Glucose 118 H, Calcium 8.0 L Micro: Microbiology 09/08/24 18:15 Urine, Clean Catch Legionella Antigen - Final 09/08/24 18:15 Urine, Clean Catch Streptococcus pneumoniae Antigen (M - Final 09/06/24 22:27 Mucosa - Nose SARS-CoV-2, Influenza & RSV (PCR) - Final SARS-CoV-2 (COVID 19 PCR) Physical Exam Const alert and oriented x3 Constitutional Narrative: very frail General Appearance: cooperative HEENT normocephalic and head/scalp atraumatic Eyes PERRL and EOMs intact bilaterally Neck no lymphadenopathy and supple Lymph Lymphatic: no lymphadenopathy noted and no lymphedema noted Resp Resp Narrative: mildly diminished breath sounds bibasally, no wheezes or crackles. On 3L of oxygen by nasal canula Cardio regular rate, regular rhythm, S1 normal heart sound, S2 normal heart sound and no murmurs GI normal to inspection, nondistended, normoactive bowel sounds, soft to palpation, non-tender and non-distended Extremity normal capillary refill, no clubbing, cyanosis or edema and no calf tenderness General Extremity: no tenderness to palpation of joints or extremities Skin General Skin Exam: no breakdown Neuro CN's II-XII intact bilaterally, no focal motor deficits and no sensory deficits noted Motor Exam: general weakness Psych thought process normal Psych Narrative: very weak and frail Mood & Affect: flat affect Assessment & Plan Assessment/Plan (1) COVID: (2) Pneumonia due to 2019-nCoV: (3) Hypoxia: PLAN: Plan #Hypoxia due to covid pneumonia * patient on 3L of oxygen by nasal canula * does not wear oxygen at home * tested positive for covid, and CXR showed left lower lobe infiltrate * on decadron. On IV ceftriaxone and azithromycin for superimposed pneumonia * Breathing treatments bronchodilators. Titrate oxygen to maintain saturation above 90%. * Check urine for strep and Legionella * Also on remdesivir * Continue gentle hydration with IV fluids. * #Hypokalemia: resolved #Severe protein calorie malnutrition * Patient is very cachectic with BMI of 15.7. Nutrition on board #Nicotine dependence: Nicotine patch 14 mg daily DVT prophylaxis: on lovenox Disposition: awaiting placement. Charges/Coding Visit Charges Inpatient E&M: 00034 Subs Hosp L2
[2024-09-09] MEDS: Remdesivir 100 MG in 0.9% Normal Saline (250mL Bag) 230 ML 250 MG IV (23:21)
[2024-09-10] VITALS (7 sets, daily range): BP systolic 143–155; BP diastolic 71–83; PULSE 51–84; RESP 16–18; TEMP 36.1–36.5; O2SAT 87–97
--- NOTE | 2024-09-10 00:57 | NURSING ---
PT WANTED REMDESIVIR INFUSION STOPPED @125ML. PT FRUSTRATED THAT IV BEEPED WHEN SHE BENT HER ARM. OFFERED TO INSERT ADDITIONAL IV AND PT REFUSED. EDUCATED RE:IMPORTANCE OF MEDICATION. PT STILL REFUSED TO CONTINUE INFUSION. 125ML OF REMDES WASTED. IV SL.
--- NOTE | 2024-09-10 05:42 | NURSING ---
requested to get lovenox later in the day so she can sleep longer.
[2024-09-10 07:34] LABS: Absolute Lymphocyte Count 0.56 X10^3/uL (0.83-4.51); Absolute Neutrophil Count 7.8 X10^3/uL (2.0-7.7); Basophil# 0.08 X10^3/uL; Basophil% 0.9 % (0-1); Hematocrit 35.9 % (37-47); Hemoglobin 12.2 g/dL (12.0-15.0); Lymphocyte # 0.56 X10^3/ul (0.83-4.51); Lymphocyte % 6.1 % (19-41); Mean Corpuscular Hgb 29.7 pg (27.0-32.0); Mean Corpuscular Volume 87.3 fL (81-99); Mean Platelet Vol. 10.8 fl (6.2-12.0); Monocyte# 0.51 X10^3/uL; Monocyte% 5.5 % (0-10); NRBC Flagged by Analyzer 0 % (0-5); Neutrophil # 7.79 X10^3/uL (2.7-7.7); Neutrophil % 84.3 % (47-70); POSITIVE DIFFERENTIAL YES; Platelet Count 246 K/mm3 (150-450); RBC Distribution Width CV 14.2 % (11.6-14.6); RBC Distribution Width SD 45.4 fl (35.1-43.9); Red Blood Count 4.11 M/mm3 (4.2-5.4); White Blood Count 9.2 K/mm3 (4.4-11.0)
[2024-09-10] MEDS: Ipratropium/Albuterol Sulfate 3 ML AMPUL.NEB INHALATION (07:45)
[2024-09-10 08:03] LABS: Anion Gap 5 (5-15); BUN 15 mg/dL (7-18); BUN/Creat Ratio 40.3 RATIO (10-20); Chloride 109 mmol/L (98-107); Creatinine, Serum 0.37 mg/dL (0.55-1.02); EST Glomerular Filtration Rate 174 mL/min (>60); Est Glom Filt Rate - Afr Amer 210 mL/min (>60); Estimated Creatinine Clearance 29.28 ml/min; Glucose 126 mg/dL (74-106); Potassium 3.6 mmol/L (3.5-5.1); Sodium Level 140 mmol/L (136-145)
[2024-09-10] MEDS: dexAMETHasone 4 MG Tablet 6 MG PO (09:24)
[2024-09-10] MEDS: Ceftriaxone 1 GM/50 ML BAG IV (09:26)
[2024-09-10] MEDS: Azithromycin 500 MG in 0.9% Normal Saline (250mL Bag) 250 ML 250 MG IV (10:52)
--- NOTE | 2024-09-10 11:51 | PCM.DC ---
Discharge Instructions Diet Discharge Diet: Low fat / Low cholesterol DC O2, CPAP, BIPAP needs RN Home O2 Qualification: Home O2 Qualification: Is the patient on home oxygen No 09/09/24 12:20 Home O2 Qualification: AT REST 1- Pulse Ox at rest 85 09/09/24 12:20 2- Pulse Ox at rest 92 09/09/24 12:20 2- Oxygen Flow Rate at rest 3 09/09/24 12:20 Home O2 Qualification: WITH AMBULATION 1- Pulse Ox with ambulation 87 09/09/24 12:20 1- Oxygen Flow Rate with 3 09/09/24 12:20 ambulation 2- Pulse Ox with ambulation 92 09/09/24 12:20 2- Oxygen Flow Rate with 4 09/09/24 12:20 ambulation PSN CPAP & BiPAP: BiPAP & CPAP Settings per PSN Fraction of Inspired Oxygen ( 95 09/07/24 21:19 FIO2) Home O2 Discharge instructions: Yes Type of respiratory needs?: Oxygen (2) Oxygen frequency: Continuous Continuous oxygen liters per minute: 2 Dressing / Incision Weight Bearing Status: Weight bearing as tolerated Dressing / Incision Call your doctor if you observe: Fever of 101 or Higher, Shortness of breath, Dizziness, Swelling in the ankles and Chest pain Follow Up Care Test Results: Test results from this visit will be discussed in further detail at your follow-up appointment, if applicable. Discharge Plan Admission Admit Date/Time: 09/06/24 23:29 Primary Reason for Your Visit: covid Attending Provider: Mariya Chahal Primary Care Provider: Care Physician,No Primary Consulting Providers: Joaquin Ribera Instructions Patient Instructions: Coronavirus Disease 2019 (COVID-19): Overview, Coronavirus Disease 2019 (COVID-19): Caring for Yourself or Others Discharge Orders/Prescriptions Prescriptions: New dexamethasone 6 mg tablet 6 mg PO DAILY Qty: 6 0RF levofloxacin 500 mg tablet 500 mg PO DAILY Qty: 5 0RF Referrals / Follow Up: Harjit Salas MD [Med Staff - Active Staff] - Within 2 Weeks (see to establish PCP care) Care Physician,No Primary [Primary Care Provider] - Disposition Disposition (needs filled in before D/C Order can be placed): Home, Self Care
--- NOTE | 2024-09-10 11:52 | PCM.DC.SUM ---
Providers Date of Admission: 09/06/24 Date of Discharge: 09/10/24 Primary Care Physician: No Primary Care Phys Reason For Visit: COVID Diagnosis Discharge Diagnosis (1) COVID: Status: Acute Code(s): U07.1 - COVID-19 (2) Pneumonia due to 2019-nCoV: Status: Acute Code(s): U07.1 - COVID-19; J12.82 - Pneumonia due to coronavirus disease 2019 (3) Hypoxia: Status: Acute Code(s): R09.02 - Hypoxemia Plan #Hypoxia due to covid pneumonia patient on 3L of oxygen by nasal canula does not wear oxygen at home tested positive for covid, and CXR showed left lower lobe infiltrate on decadron. On IV ceftriaxone and azithromycin for superimposed pneumonia Breathing treatments bronchodilators. Titrate oxygen to maintain saturation above 90%. Check urine for strep and Legionella Also on remdesivir Continue gentle hydration with IV fluids. #Hypokalemia: resolved #Severe protein calorie malnutrition Patient is very cachectic with BMI of 15.7. Nutrition on board #Nicotine dependence: Nicotine patch 14 mg daily DVT prophylaxis: on lovenox Disposition: awaiting placement. Medications at Discharge Home Medications dexamethasone 6 mg tablet 6 mg PO DAILY #6 tabs 09/10/24 levofloxacin 500 mg tablet 500 mg PO DAILY #5 tabs 09/10/24 Hospital Course Operations None Procedures None Summary of Care Provided Minutes Spent on Discharge: 55 Hospital Course: Patient is an 89 y/o female with a PMH as outlined who was admitted via the ED on 09/10/2024 with a complaint of shortness of breath and increasing weakness. She did not follow with a doctor. She was a daily smoker. She started feeling short of breath and got weaker so she was brought in to the ED, and tested positive for COVID. CXR showed a left lower lobe infiltrate. She was placed on decadron and on IV ceftriaxone and azithromycin. Urine for strep and legionella were negative. She was also placed on remdesivir. Her shortness of breath improved, though she remained on 2-3L of oxygen. She was very cachectic and remained on 2L of oxygen. She wished to go home with home health. She was discharged home on 09/10/2024 on 2L of oxygen. She is to follow up with her PCP within 1-2 weeks. She was discharged on PO decadron 6mg daily to complete a 6 day course, and also on PO levaquin 500mg daily x 5 days. Patient seen and examined. She had no active complaints. She remains on 2L of oxygen. Review of systems is otherwise negative. Labs and vitals reviewed. Home meds reviewed and reconciled. Physical Exam Const alert and oriented x3 Constitutional Narrative: very frail General Appearance: cooperative Orientation / Consciousness: awake Exam Limitations: no limitations HEENT normocephalic, head/scalp atraumatic and hearing grossly normal bilaterally Mouth: oral and palatal mucosa normal Eyes PERRL, EOMs intact bilaterally and conjunctivae normal Neck no lymphadenopathy and supple Lymph Lymphatic: no lymphadenopathy noted and no lymphedema noted Resp Resp Narrative: mildly diminished breath sounds bibasally, no wheezes or crackles. On 2 L of oxygen by nasal canula Cardio regular rate, regular rhythm, S1 normal heart sound, S2 normal heart sound and no murmurs GI normal to inspection, nondistended, normoactive bowel sounds, soft to palpation, non-tender and non-distended Extremity normal capillary refill, no clubbing, cyanosis or edema and no calf tenderness General Extremity: no tenderness to palpation of joints or extremities Skin General Skin Exam: no breakdown Neuro oriented x3, CN's II-XII intact bilaterally, moves all extremities, no focal motor deficits and no sensory deficits noted Motor Exam: general weakness Psych Psych Narrative: very weak and frail Mood & Affect: flat affect Weight / BMI Weight Weight: 85 lb 12.157 oz Body Mass Index (BMI) 15.7 ABG / Lab / Microbiology Data 09/10/24 07:05 09/10/24 07:05 Laboratory: Laboratory Results - last 24 hr 09/10/24 07:05: WBC 9.2, RBC 4.11 L, Hgb 12.2, Hct 35.9 L, MCV 87.3, MCH 29.7, MCHC 34.0, RDW Std Deviation 45.4 H, RDW Coeff of Sharon 14.2, Plt Count 246, MPV 10.8, Immature Gran % (Auto) 3.200 H, Neut % (Auto) 84.3 H, Lymph % (Auto) 6.1 L, [place] % (Auto) 5.5, Eos % (Auto) 0.0, Baso % (Auto) 0.9, Absolute Neuts (auto) 7.8 H, Absolute Lymphs (auto) 0.56 L, Nucleated RBC % 0, Sodium 140, Potassium 3.6, Chloride 109 H, Carbon Dioxide 26.0, Anion Gap 5, BUN 15, Creatinine 0.37 L, Estim Creat Clear Calc 29.28, Est GFR (MDRD) Af Amer 210, Est GFR (MDRD) Non-Af 174, BUN/Creatinine Ratio 40.3 H, Glucose 126 H, Calcium 8.0 L Microbiology: Microbiology 09/08/24 18:15 Urine, Clean Catch Legionella Antigen - Final 09/08/24 18:15 Urine, Clean Catch Streptococcus pneumoniae Antigen (M - Final 09/06/24 22:27 Mucosa - Nose SARS-CoV-2, Influenza & RSV (PCR) - Final SARS-CoV-2 (COVID 19 PCR) D/C Instructions Discharge Diet: Low fat / Low cholesterol Discharge Activity: Return to Normal Activity Weight Bearing Status: Weight bearing as tolerated Call your doctor if you observe: Fever of 101 or Higher, Shortness of breath, Dizziness, Swelling in the ankles and Chest pain DC O2, CPAP, BIPAP Needs RN Home O2 Qualification: Home O2 Qualification: Is the patient on home oxygen No 09/10/24 12:20 Home O2 Qualification: AT REST 1- Pulse Ox at rest 88 09/10/24 12:20 2- Pulse Ox at rest 94 09/10/24 12:20 2- Oxygen Flow Rate at rest 2 09/10/24 12:20 Home O2 Qualification: WITH AMBULATION 1- Pulse Ox with ambulation 87 09/10/24 12:20 1- Oxygen Flow Rate with 3 09/10/24 12:20 ambulation 2- Pulse Ox with ambulation 90 09/10/24 12:20 2- Oxygen Flow Rate with 3 09/10/24 12:20 ambulation PSN CPAP & BiPAP: BiPAP & CPAP Settings per PSN Fraction of Inspired Oxygen ( 95 09/07/24 21:19 FIO2) Home O2 Discharge instructions: Yes Type of respiratory needs?: Oxygen (2) Oxygen frequency: Continuous Continuous oxygen liters per minute: 2 DC home with Oxygen: Yes Home O2 MD Review: I have reviewed the oxygen testing, and the patient qualifies for home oxygen equipment and portability. The patient is mobile in the home and the community. Meaningful Use Info Meaningful Use Meaningful Use Diagnoses (Choose all that apply): None applicable Ischemic Stroke Statin Dosing Therapy Reference: STATIN DOSE THERAPY REFERENCE: * Patients > 75 years receive moderate or high dose statin therapy. * Patients 75 years or YOUNGER should receive HIGH intensity statin dose unless contraindicated. You will be required to document reason for non-treatment if statin daily dose does not meet guidelines. HIGH DOSE STATIN THERAPY DAILY Atorvastatin > than or = to 40 mg Rosuvastatin > than or = to 20 mg Amlodipine + Atorvastatin > than or = to 2.5/40 mg Ezetimibe + Simvastatin 10/80 mg Simvastatin 80mg Discharge Plan Admission Admit Date/Time: 09/06/24 23:29 Primary Reason for Your Visit: covid Attending Provider: Mariya Chahal Primary Care Provider: Care Physician,No Primary Consulting Providers: Joaquin Ribera Instructions Patient Instructions: Coronavirus Disease 2019 (COVID-19): Overview, Coronavirus Disease 2019 (COVID-19): Caring for Yourself or Others Discharge Orders/Prescriptions Prescriptions: New dexamethasone 6 mg tablet 6 mg PO DAILY Qty: 6 0RF levofloxacin 500 mg tablet 500 mg PO DAILY Qty: 5 0RF Referrals / Follow Up: Harjit Salas MD [Med Staff - Active Staff] - Within 2 Weeks (see to establish PCP care) Care Physician,No Primary [Primary Care Provider] - Disposition Disposition (needs filled in before D/C Order can be placed): Home, Self Care Charges/Coding Visit Charges Inpatient E&M: 11686 Disch Hosp >30min
== END 2024-09-10 20:30 | disposition home or self-care (01) | DRG 177 ==
LOC: ED 23:04 → PCU 23:43
PROVIDERS: Admitting Provider Family Medicine; Emergency Provider Emergency Medicine; Visit Provider Student in an Organized Health Care Education/Training Program
DX: U07.1 COVID-19 (principal); E43 Unspecified severe protein-calorie malnutrition; J12.82 Pneumonia due to coronavirus disease 2019; R64 Cachexia; Z68.1 Body mass index [BMI] 19.9 or less, adult; E87.6 Hypokalemia; F17.210 Nicotine dependence, cigarettes, uncomplicated; Z79.52 Long term (current) use of systemic steroids; Z90.710 Acquired absence of both cervix and uterus; Z28.310 Unvaccinated for COVID-19; Z28.1 Immunization not carried out because of patient decision for reasons of belief or group pressure; B95.3 Streptococcus pneumoniae as the cause of diseases classified elsewhere; R09.02 Hypoxemia
CPT/HCPCS: 36415; 70450; 71045; 80048; 80053; 84075; 84443; 84450; 84460; 85025; 85610; 85730; 87449; 87631; 93005; 94640; 94762; 97162; 97166; 97530; 97535; 99285; 99406; A4216; J0248